=== PATIENT | male | born 1990 | race Caucasian/White ===

== ENCOUNTER 2020-04-17 16:24 | Emergency (ER) | payer BC ==
[2020-04-17] MEDS ORDERED: Sodium Chloride 0.9% 1,000 ML IV STA (16:56)
[2020-04-17] MEDS ORDERED: Sodium Chloride 0.9% 10 ML Syringe FLUSH PRN (16:57)
--- NOTE | 2020-04-17 17:12 | EDM.PDOC ---
ED HPI GENERAL MEDICAL PROBLEM - General Chief Complaint: Flank Pain Stated Complaint: FLANK PAIN Time Seen by Provider: 04/17/20 16:51 Source of Information: Reports: Patient History Limitations: Reports: No Limitations - History of Present Illness INITIAL COMMENTS - FREE TEXT/NARRATIVE: Patient is a 30-year-old male presenting to the emergency department with complaints of acute onset of severe left flank pain. This pain brought about nausea and dry heaving. By the time of exam, the pain had subsided significantly. He denied any nausea at that time and pain was minimal. Denies a history of kidney stones. Denies any visible blood in his urine. Has had no fever, chills, or dysuria. Left Flank Pain Score (Numeric/FACES): 6 - Related Data Allergies Allergy/AdvReac Type Severity Reaction Status Date / Time amoxicillin Allergy Severe Swelling Verified 04/17/20 16:41 Penicillins Allergy Severe Swelling Verified 04/17/20 16:41 Home Meds: Home Meds Acetaminophen/HYDROcodone [Campti 325-5 MG] 1 tab PO Q4H PRN #10 tablet 04/17/20 [Rx] Ondansetron [Zofran ODT] 4 mg PO Q6H PRN #10 tab.dis 04/17/20 [Rx] Tamsulosin [Tamsulosin 24 Hr] 0.4 mg PO DAILY #10 cap.er 04/17/20 [Rx] ED ROS GENERAL - Review of Systems Review Of Systems: See Below Constitutional: Reports: No Symptoms. Denies: Fever, Chills, Weakness HEENT: Reports: No Symptoms Respiratory: Reports: No Symptoms Cardiovascular: Reports: No Symptoms Endocrine: Reports: No Symptoms GI/Abdominal: Reports: Nausea, Vomiting. Denies: Abdominal Pain : Reports: Flank Pain Musculoskeletal: Reports: No Symptoms Skin: Reports: No Symptoms Neurological: Reports: No Symptoms Psychiatric: Reports: No Symptoms Hematologic/Lymphatic: Reports: No Symptoms Immunologic: Reports: No Symptoms ED EXAM, RENAL/ - Physical Exam Exam: See Below General Appearance: Alert, WD/WN, No Apparent Distress Respiratory/Chest: No Respiratory Distress, Lungs Clear, Normal Breath Sounds, No Accessory Muscle Use, Chest Non-Tender Cardiovascular: Normal Peripheral Pulses, Regular Rate, Rhythm, No Edema, No Gallop, No JVD, No Murmur, No Rub GI/Abdominal: Normal Bowel Sounds, Soft, Non-Tender, No Organomegaly, No Distention, No Abnormal Bruit, No Mass Back Exam: Normal Inspection, CVA Tenderness (L). No: CVA Tenderness (R), Paraspinal Tenderness, Vertebral Tenderness Neurological: Alert, Oriented, CN II-XII Intact, Normal Cognition, Normal Gait, Normal Reflexes, No Motor/Sensory Deficits Psychiatric: Normal Affect, Normal Mood Course - Vital Signs Last Recorded V/S: Last Vital Signs Temp 98.2 F 04/17/20 16:38 Pulse 64 04/17/20 16:38 Resp 18 04/17/20 16:38 BP 139/87 04/17/20 16:38 Pulse Ox 95 04/17/20 16:38 - Orders/Labs/Meds Orders: Active Orders 24 hr Category Date Time Status Peripheral IV Care [RC] . DIRECTED Care 04/17/20 16:57 Active Strain Urine [RC] ASDIRECTED Care 04/17/20 18:02 Ordered Abdomen Pelvis wo Cont [CT] Stat Exams 04/17/20 16:57 Taken CBC WITH AUTO DIFF [HEME] Stat Lab 04/17/20 17:10 Results Sodium Chloride 0.9% [Saline Flush] Med 04/17/20 16:57 Active 10 ml FLUSH ASDIRECTED PRN Peripheral IV Insertion Adult [OM.PC] Stat Oth 04/17/20 16:56 Ordered Medication Orders Sodium Chloride (Saline Flush) 10 ml FLUSH ASDIRECTED PRN PRN Reason: Keep Vein Open Last Admin: 04/17/20 17:17 Dose: 10 ml Documented by: ROSY Labs: Laboratory Tests 04/17/20 04/17/20 04/17/20 Range/Units 17:10 17:10 17:15 WBC 11.35 H (4.23-9.07) K/mm3 RBC 5.83 (4.63-6.08) M/mm3 Hgb 16.4 (13.7-17.5) gm/dl Hct 47.2 (40.1-51.0) % MCV 81.0 (79.0-92.2) fl MCH 28.1 (25.7-32.2) pg MCHC 34.7 (32.2-35.5) g/dl RDW Std Deviation 37.1 (35.1-43.9) fL Plt Count 280 (163-337) K/mm3 MPV 10.2 (9.4-12.3) fl Neut % (Auto) 69.4 H (34.0-67.9) % Lymph % (Auto) 21.2 L (21.8-53.1) % [place] % (Auto) 6.3 (5.3-12.2) % Eos % (Auto) 2.4 (0.8-7.0) Baso % (Auto) 0.3 (0.1-1.2) % Neut # (Auto) 7.88 H (1.78-5.38) K/mm3 Lymph # (Auto) 2.41 (1.32-3.57) K/mm3 [place] # (Auto) 0.71 (0.30-0.82) K/mm3 Eos # (Auto) 0.27 (0.04-0.54) K/mm3 Baso # (Auto) 0.03 (0.01-0.08) K/mm3 Sodium 140 (136-145) mEq/L Potassium 3.5 (3.5-5.1) mEq/L Chloride 103 (98-107) mEq/L Carbon Dioxide 24 (21-32) mEq/L Anion Gap 16.5 H (5-15) BUN 26 H (7-18) mg/dL Creatinine 1.5 H (0.7-1.3) mg/dL Est Cr Clr Drug Dosing 80.47 mL/min Estimated GFR (MDRD) 56 (>60) mL/min BUN/Creatinine Ratio 17.3 (14-18) Glucose 109 H (74-106) mg/dL Calcium 9.4 (8.5-10.1) mg/dL Total Bilirubin 0.4 (0.2-1.0) mg/dL AST 33 (15-37) U/L ALT 53 (16-63) U/L Alkaline Phosphatase 66 (46-116) U/L C-Reactive Protein 0.7 (<1.0) mg/dL Total Protein 7.5 (6.4-8.2) g/dl Albumin 4.1 (3.4-5.0) g/dl Globulin 3.4 gm/dL Albumin/Globulin Ratio 1.2 (1-2) Urine Color Yellow (Yellow) Urine Appearance Clear (Clear) Urine pH 5.5 (5.0-8.0) Ur Specific [place] > or = 1.030 (1.005-1.030) Urine Protein 2+ H (Negative) Urine Glucose (UA) Negative (Negative) Urine Ketones Negative (Negative) Urine Occult Blood 2+ H (Negative) Urine Nitrite Negative (Negative) Urine Bilirubin Negative (Negative) Urine Urobilinogen 0.2 (0.2-1.0) Ur Leukocyte Esterase Negative (Negative) Urine RBC 5-10 H (0-5) /hpf Urine WBC Not seen (0-5) /hpf Ur Epithelial Cells Not seen (0-5) /hpf Urine Bacteria Rare (FEW) /hpf Urine Mucus Few (FEW) /hpf Meds: Medications Generic Name Dose Route Start Last Admin Trade Name Freq PRN Reason Stop Dose Admin Sodium Chloride 10 ml 04/17/20 16:57 04/17/20 17:17 Saline Flush FLUSH 10 ml ASDIRECTED PRN Administration Keep Vein Open Discontinued Medications Generic Name Dose Route Start Last Admin Trade Name Freq PRN Reason Stop Dose Admin Hydrocodone Bitart/Acetaminophen 1 tab 04/17/20 18:00 Campti 325-5 Mg PO 04/17/20 18:01 ONETIME ONE Sodium Chloride 1,000 mls @ 999 mls/hr 04/17/20 16:56 04/17/20 17:16 Normal Saline IV 04/17/20 17:56 999 mls/hr NOW STA Administration Ondansetron HCl 4 mg 04/17/20 18:02 Zofran Odt PO 04/17/20 18:03 ONETIME ONE Tamsulosin HCl 0.4 mg 04/17/20 18:02 Flomax PO 04/17/20 18:03 ONETIME ONE - Re-Assessments/Exams Free Text/Narrative Re-Assessment/Exam: Patient is a 30-year-old male presenting to the emergency department with acute onset of severe left-sided flank pain that brought him to his knees. He also had nausea and dry heaving with the onset of this pain. Symptoms had improved significantly by the time he arrived to ER, although the pain is still present mildly. He denies any nausea at this time. Denies any need for pain medication. On exam. Patient does have CVA tenderness on the left side. There is no paraspinal or vertebral tenderness. He has had no known injuries to his back. Denies any known history of kidney stones or visible blood in his urine. My suspicion is that he is suffering from a kidney stone. We will do a CBC, CMP, CRP, urinalysis. I have ordered a CT of the abdomen pelvis without contrast. He denies the need for pain or nausea medications at this time. I have ordered a 1 L bolus of normal saline. 04/17/20 18:09 He was significant for WBC minimally elevated 11.35, anion gap 16.5, BUN 26, creatinine 1.5. Urinalysis was significant for 2+ protein, 2+ occult blood, and 5-[address] scan of the abdomen pelvis showed a 2 mm distal left ureteral calculus, likely nonobstructing. Multiple intrarenal calculi on the right. Patient states that he has had small amounts of intermittent pain but nothing to the degree that the pain was earlier. We will give him a dose of Campti, Flomax, and Zofran ODT. He will be discharged home with a urine strainer. I will send a prescription for these medications as well. Discussed return precautions. Discharge instructions as documented. Departure - Departure Time of Disposition: 18:09 Disposition: Home, Self-Care 01 Condition: Good Clinical Impression: Kidney stone - Discharge Information *PRESCRIPTION DRUG MONITORING PROGRAM REVIEWED*: Yes *COPY OF PRESCRIPTION DRUG MONITORING REPORT IN PATIENT BLADIMIR: No Prescriptions: Tamsulosin [Tamsulosin 24 Hr] 0.4 mg PO DAILY #10 cap.er Acetaminophen/HYDROcodone [[place] 325-5 MG] 1 tab PO Q4H PRN #10 tablet PRN Reason: Pain Ondansetron [Zofran ODT] 4 mg PO Q6H PRN #10 tab.dis PRN Reason: Nausea/Vomiting Instructions: Kidney Stones Referrals: PCP,None [Primary Care Provider] - Forms: ED Department Discharge Additional Instructions: You were seen in the emergency department today for acute onset of left-sided flank pain. Your work-up included blood work, urinalysis, and a CT scan of your abdomen pelvis. Results of your work-up that you have a 2 mm kidney stone in your left ureter. As we discussed, this produces pain when the stone is moving. You have been sent home with a urine strainer. Recommend that you strain your urine each time you void to watch for passage of the stone. A prescription for Campti, Zofran, and Flomax have been sent to [facility]. Take these medications as prescribed. You did receive a first dose these medications in the emergency department, so keep this in mind prior to taking your next dose. If pain fails to resolve over the course of the next week or you do not feel that you have passed the stone, recommend follow-up in the clinic with your primary care provider. Return to the ER for any new or worsening symptoms of concern. Sepsis Event Note (ED) - Evaluation Sepsis Screening Result: No Definite Risk - Focused Exam Vital Signs: Vital Signs Temp Pulse Resp BP Pulse Ox 04/17/20 16:38 98.2 F 64 18 139/87 95 - My Orders Last 24 Hours: My Active Orders 04/17/20 16:56 Peripheral IV Insertion Adult [OM.PC] Stat 04/17/20 16:57 Peripheral IV Care [RC] . DIRECTED Abdomen Pelvis wo Cont [CT] Stat Sodium Chloride 0.9% [Saline Flush] 10 ml FLUSH ASDIRECTED PRN 04/17/20 17:10 CBC WITH AUTO DIFF [HEME] Stat 04/17/20 18:02 Strain Urine [RC] ASDIRECTED - Assessment/Plan Last 24 Hours: My Active Orders 04/17/20 16:56 Peripheral IV Insertion Adult [OM.PC] Stat 04/17/20 16:57 Peripheral IV Care [RC] . DIRECTED Abdomen Pelvis wo Cont [CT] Stat Sodium Chloride 0.9% [Saline Flush] 10 ml FLUSH ASDIRECTED PRN 04/17/20 17:10 CBC WITH AUTO DIFF [HEME] Stat 04/17/20 18:02 Strain Urine [RC] ASDIRECTED
[2020-04-17] MEDS ORDERED: Acetaminophen/HYDROcodone 325-5 MG Tab PO ONE (18:00)
[2020-04-17] MEDS ORDERED: Ondansetron 4 MG Tab.DIS PO ONE (18:02)
[2020-04-17] MEDS ORDERED: Tamsulosin 0.4 MG Cap.ER PO ONE (18:02)
--- NOTE | 2020-05-12 11:21 | CT ---
"PROCEDURE INFORMATION: Exam: CT Abdomen And Pelvis Without Contrast Exam date and time: 04/17/2020 4:56 PM Age: 30 years old Clinical indication: Abdominal pain; Patient HX: Left sided flank pain TECHNIQUE: Imaging protocol: Computed tomography of the abdomen and pelvis without contrast. Radiation optimization: All CT scans at this facility use at least one of these dose optimization techniques: automated exposure control; mA and/or kV adjustment per patient size (includes targeted exams where dose is matched to clinical indication); or iterative reconstruction. COMPARISON: No relevant prior studies available. FINDINGS: Lungs: The visualized lung bases are clear. Liver: There is a diffuse decrease in hepatic parenchymal density, consistent with mild hepatic steatosis. Gallbladder and bile ducts: The gallbladder is normal. There is no evidence of biliary ductal dilation. Pancreas: The pancreas is normal. Spleen: The spleen is normal. Adrenal glands: The adrenal glands are normal. Kidneys and ureters: There are least 3 calculi in the right kidney ranging in size from 1-3 mm. No definite left intrarenal calculi. 2 mm distal left ureteral calculus near the UVJ with no significant hydroureter or hydronephrosis. Stomach and bowel: Non-specific/nonobstructive intestinal gas pattern. Appendix: A normal appendix is identified. Intraperitoneal space: No free air. No free fluid. Vasculature: There is no aortic aneurysm. Lymph nodes: There is no adenopathy. Urinary bladder: The bladder is normal. JAKE VICTOR | Final Radiology Report CONFIDENTIALITY STATEMENT This report is intended only for use by the referring physician, and only in accordance with law. If you received this in error, call [phone]. Page 2 of 2 Reproductive: The prostate and seminal vesicles are normal. Bones/joints: No acute bony findings are identified. Soft tissues: No acute soft tissue abnormalities are identified. IMPRESSION: 1. 2 mm distal left ureteral calculus, likely nonobstructing. 2. Multiple intrarenal calculi on the right Thank you for allowing us to participate in the care of your patient. Dictated and Authenticated by: Dennis Moraes MD 05/10/2020 7:19 PM Central Time ([place] & [place]) [facility]ITALYvette"
== END 2020-04-17 18:20 | disposition home or self-care (01) ==
LOC: JD.ED 16:24
DX: N20.0 Calculus of kidney (principal); Z88.1 Allergy status to other antibiotic agents; Z88.0 Allergy status to penicillin
CPT/HCPCS: 36415; 74176; 80053; 81001; 85025; 86140; 99284; A9270; J7030; 99283